=== PATIENT | female | born 1975 | race African-American/Black ===

== ENCOUNTER → 2021-06-15 14:49 | Outpatient (BNVA) | payer MEDICAID, SELFPAY | PROVIDERS: PCP Internal Medicine; Visit Provider Nurse Practitioner Family | DX: M25.50 Pain in unspecified joint (principal); Z91.040 Latex allergy status; Z88.0 Allergy status to penicillin; Z79.899 Other long term (current) drug therapy | CPT/HCPCS: 99202 ==

== ENCOUNTER 2021-07-06 17:58 | Outpatient (REF) | payer MEDICAID, SELFPAY ==
--- NOTE | ~2021-07-06 | MR_ITS ---
EXAMINATION: MR LUMBAR SPINE WITHOUT CONTRAST CLINICAL INFORMATION: Lumbar radiculopathy and low back pain. COMPARISON: CT dated 11/30/2019. TECHNIQUE: MRI of the lumbar spine was obtained using routine sequences without contrast. FINDINGS: VERTEBRAL BODIES AND PARASPINAL STRUCTURES: The L5 vertebra is transitional and partially sacralized. There is a mild retrosubluxation at the L4-L5 level. No compression fractures identified. The marrow signal is fairly homogeneous. No marrow or soft tissue edema visible. There is a complex cyst with an internal fluid-fluid level suspected to arise from the left adnexum and partially visualized measuring 3.8 cm in size. Nondependent fluid within the cystic lesion is hyperintense on T1 and T2-weighted imaging. More dependent fluid is hypointense on the T2-weighted sequence. CONUS MEDULLARIS AND CAUDA EQUINA: Normal, terminating at the level of T12-L1 level. No lower cord signal abnormality seen. The cauda equina nerve roots are normal. SPINAL LEVELS: L1-L2: Mild retrosubluxation and disc bulge with mild facet arthropathy. No central canal stenosis. Mild bilateral foraminal narrowing. Small posterior annular fissure evident. L2-L3: Very mild annular bulge. No central canal stenosis. Bulging disc results in mild bilateral foraminal encroachment, more so on the left side. L3-L4: Slight retrosubluxation and disc bulge with moderate facet arthropathy. Slight narrowing of the left subarticular zone without central canal stenosis. Shallow left foraminal disc protrusion with facet spurring results in mild to moderate left foraminal encroachment. Milder right foraminal narrowing. L4-L5: Degeneration and retrosubluxation with a shallow, broad-based central disc protrusion superimposed upon a concentric disc bulge. Severe facet arthropathy without central canal stenosis. [id number] left foraminal narrowing. Severe right foraminal encroachment with mild distortion of the exiting right L4 nerve root. L5-S1: No disc pathology. No central canal stenosis or foraminal narrowing. 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 If future surgery or a percutaneous procedure is contemplated, recommend correlation with plain film evaluation in order to ensure correct enumeration. Mild multilevel degenerative disc bulges and hypertrophic facet arthropathy with foraminal encroachment. Moderate facet degeneration at the L3-L4 level with a shallow left foraminal disc protrusion. Retrosubluxation and shallow broad-based central disc protrusion at the L4-L5 level with severe facet arthrosis and significant right foraminal encroachment resulting in mild distortion of the exiting right L4 nerve root. Suspected 3.8 cm hemorrhagic cyst arising from the left ovary. A follow-up pelvic ultrasound could be obtained in 6-8 weeks following the patient's menses to evaluate for interval resolution.
== END 2021-07-06 17:59 | disposition home or self-care (01) ==
LOC: HO.MRI 17:58
PROVIDERS: Visit Provider Nurse Practitioner Family
DX: M54.16 Radiculopathy, lumbar region (principal)
CPT/HCPCS: 72148

== ENCOUNTER → 2021-07-20 15:49 | Outpatient (BNVA) | payer MEDICAID, SELFPAY | PROVIDERS: PCP Internal Medicine; Visit Provider Nurse Practitioner Family | DX: M25.50 Pain in unspecified joint (principal); M25.561 Pain in right knee; M25.562 Pain in left knee; M53.3 Sacrococcygeal disorders, not elsewhere classified; M47.819 Spondylosis without myelopathy or radiculopathy, site unspecified | CPT/HCPCS: 99212 ==

== ENCOUNTER 2021-08-17 07:53 | Outpatient (REF) | payer MEDICAID, SELFPAY ==
--- NOTE | ~2021-08-17 | MM_ITS ---
EXAMINATION: BONE DENSITOMETRY CLINICAL INDICATION: Long-term (current) use of systemic steroids. COMPARISON: This is the patient's baseline examination. TECHNIQUE: Using a Brain [employer] Hand DXA System (software version: 13.1) manufactured by [employer], dual-energy x-ray absorptiometry was performed of the lumbar spine and left hip. The images are of good technical quality. Summary results are attached. FINDINGS: AP SPINE L1-L4: BMD 1.473 g/cm2, Z-score 0.9, T-score 2.4, normal. LEFT FEMUR, NECK: BMD 1.249 g/cm2, Z-score 0.6, T-score 1.5, normal. LEFT FEMUR, TOTAL: BMD 1.365 g/cm2, Z-score 1.4, T-score 2.8, normal. IDENTIFIED RISK FACTORS: Menopause, low calcium intake, corticosteroids, osteoporosis, tobacco use (current smoker). HISTORY OF FRACTURE: None listed. MEDICATIONS: None listed. MM/XR DEXA axial skeleton IMPRESSION: 1. DIAGNOSIS: Normal bone density based on the lowest T-score value of 1.5 in the femoral neck applying World Health Organization criteria. 2. 10-YEAR FRACTURE RISK PREDICTION, FRAX: Major osteoporotic fracture (clinical spine, forearm, hip or shoulder) 1.0%. Hip fracture 0.0%. 3. Treatment Recommendations: NOF guidelines recommend consideration for treatment in postmenopausal women and men age 50 and older presenting with the following: -A hip or vertebral (clinical or morphometric) fracture. -T-score less than or equal to -2.5 at the femoral neck or spine after appropriate evaluation to exclude secondary causes. -Low bone mass at the hip or spine and a 10-year fracture probability by FRAX of greater than or equal to 3% for hip fracture or greater than or equal to 20% for major osteoporotic fracture based on the [place] adapted WHO algorithm. 4. Other Recommendations: All treatment decisions require clinical judgment and consideration of individual patient factors, including patient preferences, comorbidities, previous drug use, risk factors not captured in the FRAX model (e.g. frailty, falls, vitamin D deficiency, increased bone turnover, interval significant decline in bone density) and possible under or overestimation of fracture risk by FRAX. FUTURE SCAN RECOMMENDATION: People with diagnosed cases of osteoporosis or at high risk for fracture should have regular bone mineral density tests. For patients eligible for Medicare, routine testing is allowed once every 2 years. The testing frequency can be increased to one year for patients who have rapidly progressing disease, those who are receiving or discontinuing medical therapy to restore bone mass, or have additional risk factors.
== END 2021-08-17 07:54 | disposition home or self-care (01) ==
LOC: HO.MAMMO 07:53
PROVIDERS: Visit Provider Nurse Practitioner Family
DX: Z13.820 Encounter for screening for osteoporosis (principal); Z78.0 Asymptomatic menopausal state; Z79.52 Long term (current) use of systemic steroids
CPT/HCPCS: 77080

== ENCOUNTER 2021-11-07 06:12 | Outpatient (REF) | payer MEDICAID, SELFPAY ==
--- NOTE | ~2021-11-07 | FL_ITS ---
EXAMINATION: XR FLUOROSCOPY WITH IMAGES CLINICAL INFORMATION: Radiculopathy. COMPARISON: None. TECHNIQUE: Fluoroscopy performed by Collette Ortiz. Fluoroscopy time: 1.0 minutes. Cumulative Dose: 46.6 mGy. DAP: 0.350 Gy-cm2. Images: 2. FINDINGS: There is needle positioned lateral border of right L4 vertebra with contrast opacifying the adjacent soft tissues. No gross bony abnormality seen on visualized images. FL/FL guidance in treatment room IMPRESSION: Fluoroscopy was provided to referrer for pain management.
== END 2021-11-07 06:13 | disposition home or self-care (01) ==
LOC: HO.RADIR 06:12
PROVIDERS: Visit Provider Internal Medicine
DX: M54.16 Radiculopathy, lumbar region (principal)
CPT/HCPCS: 64483; 64484; J1100

== ENCOUNTER → 2021-11-28 15:15 | Outpatient (BNVA) | payer MEDICAID, SELFPAY | PROVIDERS: PCP Internal Medicine; Visit Provider Nurse Practitioner Family | DX: M25.561 Pain in right knee (principal); M25.562 Pain in left knee; M53.3 Sacrococcygeal disorders, not elsewhere classified; M54.16 Radiculopathy, lumbar region; M47.819 Spondylosis without myelopathy or radiculopathy, site unspecified | CPT/HCPCS: 99212 ==

== ENCOUNTER → 2022-07-16 15:31 | Outpatient (BNVA) | payer OTHER, SELFPAY | PROVIDERS: PCP Internal Medicine; Visit Provider Nurse Practitioner Family | DX: M54.16 Radiculopathy, lumbar region (principal); M25.561 Pain in right knee; M25.562 Pain in left knee; M25.50 Pain in unspecified joint; M53.3 Sacrococcygeal disorders, not elsewhere classified; M47.819 Spondylosis without myelopathy or radiculopathy, site unspecified; M79.7 Fibromyalgia | CPT/HCPCS: 99212 ==

== ENCOUNTER → 2022-07-25 15:30 | Outpatient (BNVA) | payer OTHER, SELFPAY | PROVIDERS: PCP Internal Medicine; Visit Provider Nurse Practitioner Family | DX: M79.7 Fibromyalgia (principal); M54.16 Radiculopathy, lumbar region; M19.071 Primary osteoarthritis, right ankle and foot; M19.072 Primary osteoarthritis, left ankle and foot; G89.4 Chronic pain syndrome; M51.36 Other intervertebral disc degeneration, lumbar region; M47.819 Spondylosis without myelopathy or radiculopathy, site unspecified; M25.561 Pain in right knee; M25.562 Pain in left knee; E66.01 Morbid (severe) obesity due to excess calories; Z68.42 Body mass index [BMI] 45.0-49.9, adult | CPT/HCPCS: 99212 ==

== ENCOUNTER 2023-05-25 09:25 | Emergency (ER) | payer OTHER, SELFPAY ==
--- NOTE | ~2023-05-25 | XR_ITS ---
EXAMINATION: XR CHEST CLINICAL INFORMATION: Cough and fever COMPARISON: None available. TECHNIQUE: 2 views of the chest were obtained. FINDINGS: No significant abnormality is noted involving the heart, lungs, mediastinum, bony thorax or soft tissues. XR/XR chest 2V IMPRESSION: Unremarkable chest examination.
[2023-05-25 09:31] VITALS: BP 141/73; PULSE 67; RESP 19; TEMP 36.9; O2SAT 99; BMI 54.8
--- NOTE | 2023-05-25 10:24 | ED.GENADULT ---
HPI - General Adult General Chief complaint: Nausea/Vomiting/Diarrhea Stated complaint: Vomiting Time Seen by Provider: 05/25/23 10:01 Source: patient Mode of arrival: ambulatory Limitations: no limitations History of Present Illness HPI narrative: Patient is a 48-year-old female with history of fibromyalgia, polyarthralgia presenting to the emergency department with complaint of nausea, vomiting, body aches, productive cough, sweats and chills for the past 5 days. She saw her PCP on Friday my recommended that the patient come to the ED for IV fluids, patient declined at that time opting for Zofran and attempting to hydrate at home. Patient reports she has still been unable to keep down. Complains of left lateral rib pain which she believes is due to coughing. Denies abdominal pain. Denies chest pain or palpitations. Denies any dysuria, hematuria, frequency or other urinary symptoms. MD complaint: nausea, vomiting Onset (ago): day(s) Location: left Quality: aching Pain Consistency: colicky Relieving factors: rest Exacerbating factors: other (coughing) Associated symptoms: nausea/vomiting Treatments prior to arrival: other Related Data Home Medications Medication Instructions Recorded Confirmed acetaminophen 650 mg 650 mg PO Q12H 06/15/21 11/28/21 tablet,extended release (Tylenol 8 Hour) cyclobenzaprine 5 mg tablet 5 - 10 mg PO TID PRN muscle spasm 06/15/21 11/28/21 famotidine 20 mg tablet (Pepcid) 20 mg PO DAILY 06/15/21 11/28/21 melatonin 10 mg capsule 10 mg PO BEDTIME PRN 06/15/21 11/28/21 gabapentin 100 mg capsule 0 mg PO 07/25/22 gabapentin 300 mg capsule 600 mg PO BEDTIME 07/25/22 ibuprofen 800 mg tablet 800 mg PO TID 07/25/22 Previous Rx's Medication Instructions Recorded diclofenac sodium 1 % topical gel 4 g topical QID pain #180 grams 07/25/22 (Arthritis Pain (diclofenac)) lidocaine 5 % topical patch See Rx Instructions topical DAILY 09/27/22 30 days #30 ea azithromycin 250 mg tablet See Rx Instructions PO .COMPLEX #6 05/25/23 tabs metoclopramide HCl 10 mg tablet 10 mg PO Q6H PRN nausea and 05/25/23 vomiting #10 tabs Allergies Allergy/AdvReac Type Severity Reaction Status Date / Time latex [LATEX] Allergy Unknown HIVES Verified 05/25/23 09:31 Penicillins [PENICILLINS] Allergy Unknown VERITAGE Verified 05/25/23 09:31 Review of Systems Review of Systems: As per HPI Yes all other systems are reviewed and are negative Constitutional: Constitutional: Reports as per HPI [facility] Past Medical History Medical History (Updated 05/25/23 @ 15:14 by Allison Porter NP) Fibromyalgia Social History Social History Smoked in Last 30 Days: No Use of substances other than those prescribed or required for medical reasons: No Advance Directives: No Physical Exam ED Vital Signs: Vital Signs - 24 hr 05/25/23 09:31 05/25/23 13:13 Temperature 98.5 F 98.7 F Pulse Rate 67 62 Respiratory Rate 19 18 Blood Pressure 141/73 H 137/74 Pulse Oximetry 99 Oxygen Delivery Method Room Air BMI result Body Mass Index 54.8 Vital signs have been reviewed and appear to be correct. Blood pressure elevated. Heart rate normal. Respiratory rate normal. Temperature normal. Oxygen saturation normal. Const General: cooperative, healthy appearing and no acute distress Orientation/consciousness: oriented to person, oriented to place, oriented to time and patient oriented x3 Limitations: no limitations HENMT Head: Yes normocephalic and Yes atraumatic Ears: external ears normal General nose exam: Normal external nose present Face and sinus: Yes face symmetric Mouth: oropharynx normal and moist mucous membranes Throat: Yes uvula midline Eyes Pupils: Equal, round and reactive pupils present Neck Neck: Yes normal visual inspection and Yes supple Resp Effort & Inspection: normal respiratory effort and able to speak in complete sentences Auscultation: clear to auscultation bilaterally and rhonchi upper bilaterally Cardio Rate: regular rate Rhythm: regular rhythm Heart sounds: S1 normal heart sound present and S2 normal heart sound present GI Palpation (GI): Soft to palpation and nontender Auscultation: normoactive bowel sounds General: Yes no CVA tenderness Back/Spine/Pelvis Back: no CVA tenderness Skin General skin exam: elasticity normal and turgor normal Neuro General: oriented to person, oriented to place, oriented to time, patient oriented x3, moves all extremities, no focal motor deficits and CN's II-XI intact bilaterally Cranial nerves: Yes Equal, round and reactive pupils present Cognition (Neuro): normal cognition Extrem General: Yes full ROM, Yes no pedal edema and Yes no calf tenderness Psych Mental Status: mental status grossly normal Affect: normal affect Thought process: Normal thought process present Medications Administered Discontinued Medications Generic Name Dose Route Start Last Admin Trade Name Sonali PRN Reason Stop Dose Admin Diphenhydramine HCl 25 mg 05/25/23 13:38 05/25/23 13:50 Diphenhydramine Hcl 50 Mg/Ml Vial IVPUSH 05/25/23 13:39 25 mg ONCE ONE Administration Sodium Chloride 1,000 mls @ 999 mls/hr 05/25/23 10:45 05/25/23 12:17 Ns IV 05/25/23 11:45 Infused .Q1H1M MARSHALL Infusion Sodium Chloride 1,000 mls @ 999 mls/hr 05/25/23 13:45 05/25/23 13:53 Ns IV 05/25/23 14:45 999 mls/hr .Q1H1M MARSHALL Administration Metoclopramide HCl 10 mg 05/25/23 13:38 05/25/23 13:50 Metoclopramide Hcl 10 Mg/2 Ml Vial IVPUSH 05/25/23 13:39 10 mg ONCE ONE Administration Ondansetron HCl 4 mg 05/25/23 10:38 05/25/23 10:50 Ondansetron Hcl 4 Mg/2 Ml Vial IVPUSH 05/25/23 10:39 4 mg ONCE ONE Administration Medical Decision Making Medical Decision Making MDM Narrative: Patient is a 48-year-old female with history of fibromyalgia, polyarthralgia presenting to the emergency department with complaint of nausea, vomiting, body aches, productive cough, sweats and chills for the past 5 days. On exam patient is awake, A+Ox3, VS WNL, afebrile, normal neurological exam without focal deficits, physical exam findings as above. Given reported symptoms and physical exam findings, initial differential includes viral illness, covid, flu, gastroenteritis Plan: labs, UA, viral swabs, CXR, IV fluids and antiemetics Labs grossly within normal limits. Swabs for flu and Covid negative. X-ray chest notable for no evidence of pneumonia. My interpretation is in agreement with the radiologist's interpretation. Urinalysis shows no evidence of infection, negative . Patient complaining of ongoing dry heaving and nausea. Now stating that she was prescribed doxycycline for bronchitis on Friday as well, which is likely contributing to her nausea and vomiting. Advised patient to discontinue the doxy and will prescribe azithromycin upon discharge home. Will give additional liter of fluids, reglan, and benadryl. Patient reporting good relief of nausea after 2nd liter of fluids, reglan, and benadryl, is requesting discharge home. Again advised patient to discontinue doxycycline. Will prescribe azithromycin for bronchitis as well as reglan for nausea. Instructed patient follow-up with primary care provider this week. Return precautions discussed at bedside. Patient verbalized understanding of and agreement with plan. Differential Diagnosis Differential Diagnoses: The differential diagnosis associated with the presentation includes As per [facility]. Admission/Observation Consideration of admission/observation: Escalation of care including admission/observation considered Lab Data [facility] Lab Attestation statement: I reviewed the patient's lab results. As per [facility]. 05/25/23 10:17 05/25/23 10:17 Labs: Lab Results 05/25/23 05/25/23 Range/Units 10:17 13:17 WBC 4.6 L (4.8-10.8) X10*3/uL RBC 4.95 (4.20-5.50) X10*6/uL Hgb 13.3 (12.0-16.0) g/dl Hct 42.4 (37.0-47.0) % MCV 85.7 (80.0-98.0) fL MCH 26.9 L (27.0-33.0) pg MCHC 31.4 (31.0-35.0) g/dl RDW 14.3 (11.0-16.0) % Plt Count 240 (160-400) X10*3/uL MPV 10.7 (9.4-12.3) fL Immature Gran % (Auto) 0.2 (0.0-0.4) % Neut % (Auto) 52.4 (45-73) % Lymph % (Auto) 36.5 (20-40) % Granite % (Auto) 9.2 (2-11) % Eos % (Auto) 1.5 (0-4) % Baso % (Auto) 0.2 (0-2) % Lymph # (Auto) 1.7 (1.2-4.9) X10*3/uL Granite # (Auto) 0.4 (0.1-1.2) X10*3/uL Eos # (Auto) 0.1 (0.0-0.4) X10*3/uL Baso # (Auto) 0.0 (0.0-0.2) X10*3/uL Abs Immat Gran (auto) 0.01 (0.00-0.03) X10*3/uL Absolute Neuts (auto) 2.4 (2.0-8.3) x10*3/uL Absolute Nucleated RBC 0.000 (0.0-0.012) X10*3/uL Nucleated RBC % (auto) 0.0 (0.0-0.2) /100WBC Sodium 144 (135-145) mmol/L Potassium 4.1 (3.3-5.1) mmol/L Chloride 107 (96-108) mmol/L Carbon Dioxide 27 (22-29) mmol/L Anion Gap 14 (12-20) BUN 13 (9-16) mg/dL Creatinine 0.93 (0.5-1.4) mg/dL Estim Creat Clear Calc 92.8 Estimated GFR > 60 Random Glucose 93 (60-115) mg/dL Calcium 9.6 (8.4-10.2) mg/dL Total Bilirubin 0.3 (0.0-1.0) mg/dL Direct Bilirubin 0.2 (0.0-0.5) mg/dL AST 35 H (5-31) U/L ALT 35 H (0-31) U/L Alkaline Phosphatase 59 (39-117) U/L Total Protein 7.3 (6.5-8.0) g/dL Albumin 3.9 (3.5-5.0) g/dL Lipase 9 (8-78) U/L Urine Color Yellow Urine Appearance Clear Urine pH 7.0 (5.0-9.0) Ur Specific [place] >= 1.030 H (1.005-1.025) Urine Protein Trace (Neg-Trace) mg/dL Urine Glucose (UA) Negative (Negative) mg/dL Urine Ketones 40 (Negative) mg/dL Urine Blood Negative (Negative) Urine Nitrite Negative (Negative) Ur Leukocyte Esterase Negative (Negative) Urine Test NEGATIVE (NEGATIVE) COVID-19 (NOLAN) Negative (Negative) COVID-19 Clin Com See Note Influenza Type A (MAULIK) Negative (Negative) Influenza Type B (MAULIK) Negative (Negative) Influenza A & B Note See Note Independent Interpretation I performed an independent interpretation of an: Plain X-Ray Interpretation: No evidence of pneumonia on chest x-ray Radiology Impression Discussion of test interpretation with radiology: I have reviewed the radiologist's reading. Radiologist Impression: XR/XR chest 2V IMPRESSION: Unremarkable chest examination. External Record Review External record reviewed: Inpatient record, Office record and Outpatient record Prescription Management I considered prescription management with: Antibiotic and Other Discharge Plan Discharge Clinical Impression: Gastroenteritis Patient Disposition: Home, Self-Care Instructions: Gastroenteritis (DC), Acute Nausea and Vomiting (ED), Acute Diarrhea (ED) Additional Instructions: You have been evaluated in the emergency department today for nausea, vomiting, and diarrhea. Your evaluation suggests that your symptoms are most likely due to a viral illness which will improve on it's own with rest and fluids. Remember to drink plenty of fluids at home. You are being prescribed metoclopramide which you can use as per the prescription instructions for nausea. Should stop taking the doxycycline that you were previously prescribed and begin taking the azithromycin that you are were prescribed today. Please follow up with your primary care provider within two days. Return to the emergency department if you experience worsening or uncontrolled pain, inability to tolerate fluids by mouth, difficulty breathing, fevers 100.4? F or greater, recurrent vomiting, or any other concerning symptoms. Prescriptions: New azithromycin 250 mg tablet See Rx Instructions .ROUTE .COMPLEX Qty: 6 0RF Rx Instructions: For 250 mg dose pack: take 500 mg today (day 1), then 250 mg for 4 days (days 2-5) metoclopramide HCl 10 mg tablet 10 mg PO Q6H PRN (Reason: nausea and vomiting) Qty: 10 0RF No Action lidocaine 5 % adhesive patch,medicated See Rx Instructions topical DAILY 30 Days Qty: 30 2RF Rx Instructions: leave on most painful area for up to 12 hrs topically daily; cyclobenzaprine 5 mg tablet 5 - 10 mg PO TID PRN (Reason: muscle spasm) acetaminophen [Tylenol 8 Hour] 650 mg tablet extended release 650 mg PO Q12H famotidine [Pepcid] 20 mg tablet 20 mg PO DAILY melatonin 10 mg capsule 10 mg PO BEDTIME PRN gabapentin 300 mg capsule 600 mg PO BEDTIME ibuprofen 800 mg tablet 800 mg PO TID gabapentin 100 mg capsule 0 mg PO diclofenac sodium [Arthritis Pain (diclofenac)] 1 % gel 4 g topical QID Qty: 180 1RF Rx Instructions: Apply 1-3 grams (pumps) to the affected area 3-4 times daily (knee and feet). Apply first, then rub in well.
[2023-05-25 10:26] LABS: MANUAL DIFF FLAG NO
[2023-05-25 10:29] LABS: Basophils Percent Auto 0.2 % (0-2); Eosinophils Absolute Auto 0.1 X10*3/uL (0.0-0.4); Eosinophils Percent Auto 1.5 % (0-4); Hematocrit 42.4 % (37.0-47.0); Hemoglobin 13.3 g/dl (12.0-16.0); Imm Gran Abs Auto 0.01 X10*3/uL (0.00-0.03); Imm Gran Pct Auto 0.2 % (0.0-0.4); Lymphocytes Absolute Auto 1.7 X10*3/uL (1.2-4.9); Lymphocytes Percent Auto 36.5 % (20-40); Mean Corpuscular HGB Conc 31.4 g/dl (31.0-35.0); Mean Corpuscular Hemoglobin 26.9 pg (27.0-33.0); Mean Corpuscular Volume 85.7 fL (80.0-98.0); Mean Platelet Volume 10.7 fL (9.4-12.3); Monocytes Absolute Auto 0.4 X10*3/uL (0.1-1.2); Monocytes Percent Auto 9.2 % (2-11); Neutrophils Absolute Auto 2.4 x10*3/uL (2.0-8.3); Neutrophils Percent Auto 52.4 % (45-73); Platelet Count 240 X10*3/uL (160-400); Red Blood Count 4.95 X10*6/uL (4.20-5.50); Red Cell Distribution Width 14.3 % (11.0-16.0); White Blood Count 4.6 X10*3/uL (4.8-10.8)
[2023-05-25 10:43] LABS: Alanine Aminotransferase 35 U/L (0-31); Albumin Level 3.9 g/dL (3.5-5.0); Alkaline Phosphatase 59 U/L (39-117); Anion Gap 14 (12-20); Aspartate Amino Transferase 35 U/L (5-31); Bilirubin Direct 0.2 mg/dL (0.0-0.5); Bilirubin Total 0.3 mg/dL (0.0-1.0); Blood Urea Nitrogen 13 mg/dL (9-16); Calcium 9.6 mg/dL (8.4-10.2); Carbon Dioxide 27 mmol/L (22-29); Chloride 107 mmol/L (96-108); Creatinine Clr Calc Pharmacy 92.8; Estimated Glomerular Filt Rate > 60; Glucose Random 93 mg/dL (60-115); Lipase 9 U/L (8-78); Potassium 4.1 mmol/L (3.3-5.1); Sodium 144 mmol/L (135-145); Total Protein 7.3 g/dL (6.5-8.0)
[2023-05-25 10:48] LABS: COVID-19 Test Negative (Negative); IDNOW Serial# 16C4AD1C; IDNOW Serial# 55D5AD1C; Influenza A Negative (Negative); Influenza B2 Negative (Negative)
[2023-05-25] MEDS: 0.9 % Sodium Chloride 1,000 ML 999 ML IV ×2 (10:50→13:53)
[2023-05-25] MEDS: ondansetron HCL 4 MG/2 ML VIAL IVPUSH (10:50)
[2023-05-25 13:13] VITALS: BP 137/74; PULSE 62; RESP 18; TEMP 37.1
[2023-05-25 13:23] LABS: Appearance Urine Clear; Color Urine Yellow; Glucose Urine UA Negative (Negative); Leukocyte Esterase Urine Negative (Negative); Nitrite Urine Negative (Negative); Specific Gravity - Urine >= 1.030 (1.005-1.025); UPreg QC Valid YES; Urine Blood Negative (Negative); Urine Ketones 40 mg/dL (Negative); Urine Pregnancy NEGATIVE (NEGATIVE); Urine Protein Trace mg/dL (Neg-Trace)
[2023-05-25] MEDS: Metoclopramide HCl 10 MG/2 ML VIAL IVPUSH (13:50)
[2023-05-25] MEDS: diphenhydrAMINE HCL 50 MG/ML VIAL 25 MG IVPUSH (13:50)
== END 2023-05-25 15:31 | disposition home or self-care (01) ==
PROVIDERS: Emergency Provider Emergency Medicine Emergency Medical Services; PCP Internal Medicine
DX: K52.9 Noninfective gastroenteritis and colitis, unspecified (principal); R11.2 Nausea with vomiting, unspecified; M79.10 Myalgia, unspecified site; R05.9 Cough, unspecified; R50.9 Fever, unspecified; Z11.52 Encounter for screening for COVID-19; Z79.899 Other long term (current) drug therapy
CPT/HCPCS: 71046; 80048; 80076; 81003; 81025; 83690; 85025; 87502; 87635; 96361; 96374; 96375; 99284; J1200; J2405; J2765

== ENCOUNTER 2023-11-15 10:10 | Outpatient (REF) | payer OTHER, SELFPAY ==
[2023-11-15 12:25] LABS: Vitamin B12 357 pg/mL (200-900)
== END 2023-11-15 10:11 | disposition home or self-care (01) ==
LOC: HO.LAB 10:10
PROVIDERS: PCP Internal Medicine; Visit Provider Psychiatry & Neurology Neurology
DX: R20.0 Anesthesia of skin (principal); R41.3 Other amnesia
CPT/HCPCS: 36415; 82607; 84443

== ENCOUNTER 2024-10-04 18:17 | Emergency (ER) | payer OTHER, SELFPAY ==
[2024-10-04 18:30] VITALS: BP 167/78; PULSE 72; RESP 18; TEMP 36.8; O2SAT 98; BMI 48.9
--- NOTE | 2024-10-04 18:30 | ED.GENADULT ---
HPI - General Adult General Chief complaint: Abdominal Pain Stated complaint: Passing a Kidney stone? Related Data Home Medications ?Medication ?Instructions ?Recorded ?Confirmed acetaminophen 650 mg 650 mg PO Q12H 06/15/21 11/28/21 tablet,extended release (Tylenol 8 Hour) cyclobenzaprine 5 mg tablet 5 - 10 mg PO TID PRN muscle spasm 06/15/21 11/28/21 famotidine 20 mg tablet (Pepcid) 20 mg PO DAILY 06/15/21 11/28/21 melatonin 10 mg capsule 10 mg PO BEDTIME PRN 06/15/21 11/28/21 gabapentin 100 mg capsule 0 mg PO 07/25/22 gabapentin 300 mg capsule 600 mg PO BEDTIME 07/25/22 ibuprofen 800 mg tablet 800 mg PO TID 07/25/22 Previous Rx's ?Medication ?Instructions ?Recorded diclofenac sodium 1 % topical gel 4 g topical QID pain #180 grams 07/25/22 (Arthritis Pain (diclofenac)) lidocaine 5 % topical patch See Rx Instructions topical DAILY 09/27/22 30 days #30 ea azithromycin 250 mg tablet See Rx Instructions PO .COMPLEX #6 05/25/23 tabs metoclopramide HCl 10 mg tablet 10 mg PO Q6H PRN nausea and 05/25/23 vomiting #10 tabs oxycodone 5 mg tablet 5 mg PO Q8H PRN severe pain (scale 10/05/24 score 7-10) #12 tabs prednisone 20 mg tablet 20 mg PO DAILY 5 days #5 tabs 10/06/24 tamsulosin 0.4 mg capsule 0.4 mg PO BEDTIME 14 days #14 caps 10/06/24 Allergies Allergy/AdvReac Type Severity Reaction Status Date / Time latex (LATEX) Allergy Unknown HIVES Verified 10/05/24 14:29 Penicillins (PENICILLINS) Allergy Unknown VERITAGE Verified 10/05/24 14:29 [facility] Past Medical History Medical History (Updated 10/07/24 @ 21:03 by TRINY Schneider) Fibromyalgia Social History Social History Substance Use Type: Marijuana Physical Exam ED Vital Signs: BMI result Body Mass Index 48.9 Course Course Course Narrative: This is an RME: Additional HPI, ROS, PE not included below will be deferred to primary provider. RME assessment and note performed by: Afsaneh Rutherford PA-C This is a [id number]-female, with a hx of kidney stones,fibromyalgia, polyarthralgia who presents to the ER with a complaint of left lower abdomen x 4 days. She believes that it is a kidney stone. Reporting nausea and dry heaving this morning. No fevers, endorsing chills. Urinary frequency. Reporting she had constipation > tried [id number] medications and that she had some diarrhea, states that it was unusual. She does have pain in the left low abdomen. Plan: Labs, UA, deferring diagnostic imaging for primary provider as patient also has some GI symptoms therefore may need CT with IV contrast Reevaluation(s) Reevaluation #1: Patient left without completing treatment. Medical Decision Making Lab Data 10/04/24 19:14 10/04/24 19:14 Labs: Lab Results 10/04/24 Range/Units 19:14 WBC 8.7 (4.8-10.8) X10*3/uL RBC 4.53 (4.20-5.50) X10*6/uL Hgb 11.9 L (12.0-16.0) g/dl Hct 38.0 (37.0-47.0) % MCV 83.9 (80.0-98.0) fL MCH 26.3 L (27.0-33.0) pg MCHC 31.3 (31.0-35.0) g/dl RDW 14.7 (11.0-16.0) % Plt Count 256 (160-400) X10*3/uL MPV 10.9 (9.4-12.3) fL Immature Gran % (Auto) 0.2 (0.0-0.4) % Neut % (Auto) 55.0 (45-73) % Lymph % (Auto) 34.5 (20-40) % [place] % (Auto) 7.7 (2-11) % Eos % (Auto) 2.1 (0-4) % Baso % (Auto) 0.5 (0-2) % Lymph # (Auto) 3.0 (1.2-4.9) X10*3/uL [place] # (Auto) 0.7 (0.1-1.2) X10*3/uL Eos # (Auto) 0.2 (0.0-0.4) X10*3/uL Baso # (Auto) 0.0 (0.0-0.2) X10*3/uL Abs Immat Gran (auto) 0.02 (0.00-0.03) X10*3/uL Absolute Neuts (auto) 4.8 (2.0-8.3) x10*3/uL Absolute Nucleated RBC 0.000 (0.0-0.012) X10*3/uL Nucleated RBC % (auto) 0.0 (0.0-0.2) /100WBC Sodium 142 (135-145) mmol/L Potassium 4.5 (3.3-5.1) mmol/L Chloride 110 H (96-108) mmol/L Carbon Dioxide 25 (22-29) mmol/L Anion Gap 12 (12-20) BUN 17 H (9-16) mg/dL Creatinine 1.00 (0.5-1.4) mg/dL Estim Creat Clear Calc 88.7 Estimated GFR 58 Random Glucose 89 (60-115) mg/dL Calcium 9.5 (8.4-10.2) mg/dL Total Bilirubin 0.3 (0.0-1.0) mg/dL Direct Bilirubin 0.1 (0.0-0.5) mg/dL AST 24 (5-31) U/L ALT 21 (0-31) U/L Alkaline Phosphatase 68 (39-117) U/L Total Protein 7.1 (6.5-8.0) g/dL Albumin 4.2 (3.5-5.0) g/dL Urine Color Dark Yellow Urine Appearance Cloudy Urine pH 5.5 (5.0-9.0) Ur Specific [place] >= 1.030 H (1.005-1.025) Urine Protein 30 (1+) H (Neg-Trace) mg/dL Urine Glucose (UA) Negative (Negative) mg/dL Urine Ketones Trace (Negative) mg/dL Urine Blood Large (3+) H (Negative) Urine Nitrite Negative (Negative) Ur Leukocyte Esterase Trace H (Negative) Urine RBC >20 H (0-2) /HPF Urine WBC 0-5 (0-5) /HPF Ur Squamous Epith Cells >20 (0-2) /HPF Urine Bacteria 1+ (None Seen) Hyaline Casts 0-2 (0-2) /LPF Discharge Plan Discharge Clinical Impression: Abdominal pain Patient Disposition: Left W/O Completing Treatment Prescriptions: No Action lidocaine 5 % adhesive patch,medicated See Rx Instructions topical DAILY 30 Days Qty: 30 2RF Rx Instructions: leave on most painful area for up to 12 hrs topically daily; prednisone 20 mg tablet 20 mg PO DAILY 5 Days Qty: 5 0RF tamsulosin 0.4 mg capsule 0.4 mg PO BEDTIME 14 Days Qty: 14 0RF azithromycin 250 mg tablet See Rx Instructions .ROUTE .COMPLEX Qty: 6 0RF Rx Instructions: For 250 mg dose pack: take 500 mg today (day 1), then 250 mg for 4 days (days 2-5) metoclopramide HCl 10 mg tablet 10 mg PO Q6H PRN (Reason: nausea and vomiting) Qty: 10 0RF oxycodone 5 mg tablet 5 mg PO Q8H PRN (Reason: severe pain (scale score 7-10)) Qty: 12 0RF Rx Instructions: Partial Fill upon patient request. cyclobenzaprine 5 mg tablet 5 - 10 mg PO TID PRN (Reason: muscle spasm) acetaminophen [Tylenol 8 Hour] 650 mg tablet extended release 650 mg PO Q12H famotidine [Pepcid] 20 mg tablet 20 mg PO DAILY melatonin 10 mg capsule 10 mg PO BEDTIME PRN gabapentin 300 mg capsule 600 mg PO BEDTIME ibuprofen 800 mg tablet 800 mg PO TID gabapentin 100 mg capsule 0 mg PO diclofenac sodium [Arthritis Pain (diclofenac)] 1 % gel 4 g topical QID Qty: 180 1RF Rx Instructions: Apply 1-3 grams (pumps) to the affected area 3-4 times daily (knee and feet). Apply first, then rub in well. Discharge Date/Time: 10/04/24 21:24
[2024-10-04 19:20] LABS: MANUAL DIFF FLAG NO
[2024-10-04 19:23] LABS: Appearance Urine Cloudy; Color Urine Dark Yellow; Glucose Urine UA Negative (Negative); Leukocyte Esterase Urine Trace (Negative); Nitrite Urine Negative (Negative); PH 5.5 (5.0-9.0); Specific Gravity - Urine >= 1.030 (1.005-1.025); UMIC TRIGGER UACC YES; Urine Blood Large (3+) (Negative); Urine Ketones Trace mg/dL (Negative); Urine Protein 30 (1+) mg/dL (Neg-Trace)
[2024-10-04 19:24] LABS: Basophils Percent Auto 0.5 % (0-2); Eosinophils Absolute Auto 0.2 X10*3/uL (0.0-0.4); Eosinophils Percent Auto 2.1 % (0-4); Hemoglobin 11.9 g/dl (12.0-16.0); Imm Gran Abs Auto 0.02 X10*3/uL (0.00-0.03); Imm Gran Pct Auto 0.2 % (0.0-0.4); Lymphocytes Percent Auto 34.5 % (20-40); Mean Corpuscular HGB Conc 31.3 g/dl (31.0-35.0); Mean Corpuscular Hemoglobin 26.3 pg (27.0-33.0); Mean Corpuscular Volume 83.9 fL (80.0-98.0); Mean Platelet Volume 10.9 fL (9.4-12.3); Monocytes Absolute Auto 0.7 X10*3/uL (0.1-1.2); Monocytes Percent Auto 7.7 % (2-11); Neutrophils Absolute Auto 4.8 x10*3/uL (2.0-8.3); Platelet Count 256 X10*3/uL (160-400); Red Blood Count 4.53 X10*6/uL (4.20-5.50); Red Cell Distribution Width 14.7 % (11.0-16.0); White Blood Count 8.7 X10*3/uL (4.8-10.8)
[2024-10-04 19:28] LABS: Bacteria Urine 1+ (None Seen); Hyaline Casts Urine 0-2 /LPF (0-2); RBC Urine >20 /HPF (0-2); Squamous Epithelial Cell Urine >20 /HPF (0-2); WBC Urine 0-5 /HPF (0-5)
[2024-10-04 19:35] LABS: Alanine Aminotransferase 21 U/L (0-31); Albumin Level 4.2 g/dL (3.5-5.0); Alkaline Phosphatase 68 U/L (39-117); Anion Gap 12 (12-20); Aspartate Amino Transferase 24 U/L (5-31); Bilirubin Direct 0.1 mg/dL (0.0-0.5); Bilirubin Total 0.3 mg/dL (0.0-1.0); Blood Urea Nitrogen 17 mg/dL (9-16); Calcium 9.5 mg/dL (8.4-10.2); Carbon Dioxide 25 mmol/L (22-29); Chloride 110 mmol/L (96-108); Creatinine Clr Calc Pharmacy 88.7; Estimated Glomerular Filt Rate 58; Glucose Random 89 mg/dL (60-115); Potassium 4.5 mmol/L (3.3-5.1); Sodium 142 mmol/L (135-145); Total Protein 7.1 g/dL (6.5-8.0)
--- OUTSIDE RECORDS SUMMARY | 2024-10-04 21:25 | XMS_ITS | Clinical Summary ---
Author Organization [employer] Address [address] [place] [address] Care Team Providers Care Continuous Drier Helper Name Role Phone Unavailable Primary Care Provider Unavailabl e Immunizations Immunization Administration Dates Next Due Moderna Covid-19 Vaccine 12+ 05/15/2021,08/23/19,07/25/2020 Moderna Covid-19 Vaccine 6+ Bivalent 2022 Social History Tobacco Use Types Packs/Day Years Used Date Smoking Tobacco: Never Assessed Comments Unknown Sex and Gender Information Value Date Recorded Sex Assigned at Female 2022 10:27 AM EST Legal Sex Female 10:23 AM EST Gender Identity Female 2022 10:27 AM EST Sexual Orientation Straight 2022 10 :27 AM EST Plan of Treatment Health Maintenance Due Date Last Done Comments CT Colonography 1973 Colonoscopy 1973 Colorectal Cancer Screening 1973 Depression Screening 1973 FIT DNA/Cologuard 1973 FIT 1973 FOBT 1973 HIV Screening 1973 Lipid Panel 1973 SDOH Screening 1973 Sigmoidoscopy 1973 Disability Screening 1973 Alcohol/Substance Use Screening 1985 Tobacco Screening 1985 Family Planning (PISQ) 1988 Hepatitis C Screening 1991 Hepatitis B Vaccines (1 of 3 - 19+ 3-dose series) 1992 Pap Smear 1994 Cervical Cancer Screening 2003 HPV/Cotest 2003 Mammogram 2013 DTaP/Tdap/Td Vaccines (2 - Td or Tdap) 02/21/2021 02/21/2011 Pneumococcal Vaccine: 50+ Years (1 of 1 - PCV) 2023 Zoster Vaccines (1 of 2) 2023 COVID-19 Vaccine (5 - 4-25 season) 2023 2022, 05/15/2021, 08/22/2020, Additional history exists Influenza Vaccine (Season Ended) 2024 RSV Patients and Patients Aged 60 years or older (1 - 1-dose 75+ series) 2048 HIB Vaccines Aged Out No longer eligi ble based on patient's age to complete this topic HPV Vaccines Aged Out No longer eligi ble based on patient's age to complete this topic Hepatitis A Vaccines Aged Out No long er eligible based on patient's age to complete this topic IPV Vaccines Aged Out No longer eligi ble based on patient's age to complete this topic Meningococcal B Vaccine Aged Out No l onger eligible based on patient's age to complete this topic Meningococcal Vaccine Aged Out No kavin samir eligible based on patient's age to complete this topic RSV under 20 months Aged Out No longe r eligible based on patient's age to complete this topic Rotavirus Vaccines Aged Out No longer eligible based on patient's age to complete this topic Insurance [facility]
== END 2024-10-04 21:24 | disposition left against medical advice (07) ==
PROVIDERS: Physician Assistant Medical; Emergency Provider Emergency Medicine; PCP Internal Medicine
DX: R10.2 Pelvic and perineal pain (principal); Z79.899 Other long term (current) drug therapy
CPT/HCPCS: 36415; 80048; 80076; 81001; 85025; 99282; 99283

== ENCOUNTER 2024-10-05 14:18 | Emergency (ER) | payer OTHER, SELFPAY ==
--- NOTE | ~2024-10-05 | CT_ITS ---
CLINICAL HISTORY: left flank pain CT abdomen and pelvis without contrast Comparison: None provided Findings: The lung bases are clear. 3 mm calculus within the upper pole of the left kidney. Additional 4 mm calcification within the left distal ureter. No hydronephrosis. There are 2 circumscribed low-density nodules within the lateral segment of the liver, measuring 4.7 and 3.2 cm in greatest dimension respectively. The spleen, pancreas and adrenal glands are unremarkable. There is no calcified gallstone. No bowel obstruction, pneumoperitoneum, or pneumatosis. The urinary bladder is completely decompressed. Pelvic contents are otherwise unremarkable. The appendix is normal. The bones are intact. IMPRESSION: 1. 4 mm calcification within the left distal ureter. No associated hydronephrosis. 2. Tiny nonobstructive calculus within the upper pole of the left kidney. 3. There are 2 prominent nodules within the lateral segment of the liver. Benign nodules are favored malignancy is not excluded. Recommend further evaluation with multiphase CT or MRI. This document has been electronically signed by: Fatmata Hardy MD on 10/05/2024 21:04:45
--- NOTE | ~2024-10-05 | XR_ITS ---
EXAMINATION: XR ABDOMEN COMPLETE CLINICAL INDICATION: evaluate for stool burden vs obvious SBO COMPARISON: CT abdomen and pelvis November 30, 2019 TECHNIQUE: Upright and supine views of the abdomen. FINDINGS: Scattered small bowel gas is present. There are no air-fluid levels. Moderate stool is present in the transverse colon, right midline XR/XR acute abdomen series IMPRESSION: Unremarkable examination. Electronically signed by: Junaid Flores MD 10/05/2024 03:37 PM EDT
--- NOTE | ~2024-10-05 | US_ITS ---
EXAMINATION: US RETROPERITONEAL LIMITED (RENAL ONLY) CLINICAL INFORMATION: Abdominal pain. COMPARISON: None available. TECHNIQUE: Color Doppler and grayscale images were performed to evaluate both kidneys FINDINGS: RIGHT KIDNEY: 10 cm (long axis). The kidney is normal in size, contour, and echogenicity. Renal cortical thickness is normal. No calculi or focal parenchymal lesions. No hydronephrosis. LEFT KIDNEY: 9.5 cm (long axis). The kidney is normal in size, contour, and echogenicity. Renal cortical thickness is normal. No calculi or focal parenchymal lesions. No hydronephrosis. US/US renal BI IMPRESSION: Unremarkable renal ultrasound. Electronically signed by: Junaid Flores MD 10/05/2024 04:31 PM EDT
[2024-10-05 14:24] VITALS: BP 138/77; PULSE 93; RESP 16; TEMP 36.9; O2SAT 98; BMI 48.7
--- NOTE | 2024-10-05 14:27 | ED.ABDPAIN ---
HPI - Abdominal Pain General Chief Complaint: Abdominal Pain Stated Complaint: kidney stone Time Seen by Provider: 10/05/24 19:37 Source: patient, RN notes reviewed and old records reviewed Mode of arrival: ambulatory Limitations: no limitations History of Present Illness ED Provider: Jessica HPI narrative: 49-year-old female past medical history significant for fibromyalgia, lumbar degenerative disc disease, chronic pain syndrome presents for evaluation of left lower abdominal pain for the last 4 days. She reports she has a history of kidney stones in his feels similar. She describes ?a pressure on my bladder. ? She has noticed blood in her urine. She reports decreased urination despite straining. She also endorses constipation. She was previously on MiraLax but father that worsen her constipation so she stopped taking it. Her pain is waxing and waning in intensity. She presented to this emergency department yesterday but ultimately left without being seen due to wait time. Denies any fevers, chills Related Data Home Medications ?Medication ?Instructions ?Recorded ?Confirmed acetaminophen 650 mg 650 mg PO Q12H 06/15/21 11/28/21 tablet,extended release (Tylenol 8 Hour) cyclobenzaprine 5 mg tablet 5 - 10 mg PO TID PRN muscle spasm 06/15/21 11/28/21 famotidine 20 mg tablet (Pepcid) 20 mg PO DAILY 06/15/21 11/28/21 melatonin 10 mg capsule 10 mg PO BEDTIME PRN 06/15/21 11/28/21 gabapentin 100 mg capsule 0 mg PO 07/25/22 gabapentin 300 mg capsule 600 mg PO BEDTIME 07/25/22 ibuprofen 800 mg tablet 800 mg PO TID 07/25/22 Previous Rx's ?Medication ?Instructions ?Recorded diclofenac sodium 1 % topical gel 4 g topical QID pain #180 grams 07/25/22 (Arthritis Pain (diclofenac)) lidocaine 5 % topical patch See Rx Instructions topical DAILY 09/27/22 30 days #30 ea azithromycin 250 mg tablet See Rx Instructions PO .COMPLEX #6 05/25/23 tabs metoclopramide HCl 10 mg tablet 10 mg PO Q6H PRN nausea and 05/25/23 vomiting #10 tabs oxycodone 5 mg tablet 5 mg PO Q8H PRN severe pain (scale 10/05/24 score 7-10) #12 tabs prednisone 20 mg tablet 20 mg PO DAILY 5 days #5 tabs 10/06/24 tamsulosin 0.4 mg capsule 0.4 mg PO BEDTIME 14 days #14 caps 10/06/24 Allergies Allergy/AdvReac Type Severity Reaction Status Date / Time latex (LATEX) Allergy Unknown HIVES Verified 10/05/24 14:29 Penicillins (PENICILLINS) Allergy Unknown VERITAGE Verified 10/05/24 14:29 Review of Systems Constitutional: Denies body ache(s), Denies chills, Denies fever(s) and Denies headache(s) Denies headache(s) Cardiovascular: Denies chest pain and Denies dyspnea on exertion Respiratory: Denies cough and Denies dyspnea on exertion Gastrointestinal: Reports abdominal pain, Reports constipation, Reports GI cramping, Denies diarrhea, Denies loose stools, Reports nausea and Denies vomiting Musculoskeletal: Denies back pain Skin/Breast: Denies rash Denies headache(s) Psychiatric: Denies anxiety PMFSH Past Medical History Medical History (Updated 10/08/24 @ 00:00 by Jacob Daroger) Fibromyalgia Social History Social History Substance Use Type: Marijuana Physical Exam ED Vital Signs: Vital Signs - 24 hr 10/05/24 14:24 10/05/24 19:13 10/05/24 19:50 Temperature 98.5 F 97.5 F Pulse Rate 93 75 67 Respiratory Rate 16 16 18 Blood Pressure 138/77 148/76 H 153/74 H Pulse Oximetry 98 97 97 Oxygen Delivery Method Room Air Room Air Room Air BMI result Body Mass Index 48.7 Const General: healthy appearing, comfortable, no acute distress, alert and awake Nutritional Appearance: well nourished Orientation/consciousness: patient oriented x3 [facility] Head: Yes normocephalic and Yes atraumatic Eyes Eyelids: Yes eyelids normal Conjunctivae: conjunctivae normal Sclerae: sclerae normal Corneas: corneas normal Pupils: Equal, round and reactive pupils present EOM: EOMs intact bilaterally Neck Neck: Yes full ROM Resp Effort & Inspection: normal respiratory effort, able to speak in complete sentences and not labored Cardio Rate: regular rate Rhythm: regular rhythm GI Inspection: No distended Palpation (GI): Soft to palpation, not firm, Tenderness to palpation present (GI) in the LLQ, no guarding and not rigid Auscultation: normoactive bowel sounds Skin General skin exam: elasticity normal Neuro General: patient oriented x3 Cranial nerves: Yes Equal, round and reactive pupils present and Yes Bilaterally intact EOM present Cognition (Neuro): normal cognition Extrem Other: Moving all extremities well without any obvious deformities Course Course Course Narrative: RME: Bianca Omalley PA-C 10/05/2024: 234 pm; will defer full ROS and PE to treating provider Left lower pelvic pain x 4 days here yesterday left before being seen. Thinks she could have kidney stone, no blood in urine, pain is colicky. Had colonoscopy earlier this month old she was constipated told to take MiraLax daily for which she tried but it think it was making any difference so she stopped taking it. Last BM being 3 days ago normal and this morning was pellets. She denies feeling nauseous there has been no vomiting and no diarrhea. No fevers and no chills denies any vaginal symptoms and has no painful urination but does report change in urinary output Medical Decision Making Medical Decision Making MDM Narrative: 49-year-old female with past medical history significant for fibromyalgia, chronic pain syndrome and degenerative disc disease presents for evaluation abdominal pain. She endorses blood in her urine and decreased urination but no pain with urination. She has a history of kidney stones and reports this feels similar. A renal ultrasound was ordered that does not show any evidence of hydronephrosis. No large stones were seen on the ultrasound either. A KUB shows mostly right-sided transverse colon constipation which does not explain her left-sided abdominal pain. There was no clear bowel obstruction. Given the left lower abdominal pain there was concern for diverticulitis. A CT scan without contrast was ordered to evaluate for diverticulitis versus obstructive uropathy that was not picked up on the ultrasound. No evidence of UTI causing her hematuria. There are no white cells seen and no bacteria in the urine also no nitrites. Differential Diagnosis Differential Diagnoses: The differential diagnosis associated with the presentation includes Abdominal pain Constipation Obstructive uropathy Colitis UTI Lab Data MDM Lab Attestation statement: I reviewed the patient's lab results. No leukocytosis or anemia. Normal platelet count. No significant electrolyte abnormalities warranting intervention. 10/05/24 14:39 10/05/24 14:39 Labs: Lab Results 10/05/24 10/05/24 Range/Units 14:39 19:16 WBC 8.8 (4.8-10.8) X10*3/uL RBC 4.64 (4.20-5.50) X10*6/uL Hgb 12.3 (12.0-16.0) g/dl Hct 39.5 (37.0-47.0) % MCV 85.1 (80.0-98.0) fL MCH 26.5 L (27.0-33.0) pg MCHC 31.1 (31.0-35.0) g/dl RDW 14.7 (11.0-16.0) % Plt Count 266 (160-400) X10*3/uL MPV 10.6 (9.4-12.3) fL Immature Gran % (Auto) 0.3 (0.0-0.4) % Neut % (Auto) 52.9 (45-73) % Lymph % (Auto) 37.4 (20-40) % [place] % (Auto) 7.1 (2-11) % Eos % (Auto) 2.0 (0-4) % Baso % (Auto) 0.3 (0-2) % Lymph # (Auto) 3.3 (1.2-4.9) X10*3/uL [place] # (Auto) 0.6 (0.1-1.2) X10*3/uL Eos # (Auto) 0.2 (0.0-0.4) X10*3/uL Baso # (Auto) 0.0 (0.0-0.2) X10*3/uL Abs Immat Gran (auto) 0.03 (0.00-0.03) X10*3/uL Absolute Neuts (auto) 4.6 (2.0-8.3) x10*3/uL Absolute Nucleated RBC 0.000 (0.0-0.012) X10*3/uL Nucleated RBC % (auto) 0.0 (0.0-0.2) /100WBC Sodium 142 (135-145) mmol/L Potassium 4.3 (3.3-5.1) mmol/L Chloride 106 (96-108) mmol/L Carbon Dioxide 27 (22-29) mmol/L Anion Gap 13 (12-20) BUN 15 (9-16) mg/dL Creatinine 1.00 (0.5-1.4) mg/dL Estim Creat Clear Calc 88.5 Estimated GFR 58 Fasting Glucose 85 (60-99) mg/dL Calcium 9.9 (8.4-10.2) mg/dL Total Bilirubin 0.4 (0.0-1.0) mg/dL AST 26 (5-31) U/L ALT 21 (0-31) U/L Alkaline Phosphatase 70 (39-117) U/L Total Protein 7.4 (6.5-8.0) g/dL Albumin 4.2 (3.5-5.0) g/dL Urine Color Yellow Urine Appearance Clear Urine pH 6.5 (5.0-9.0) Ur Specific [place] >= 1.030 H (1.005-1.025) Urine Protein Negative (Neg-Trace) mg/dL Urine Glucose (UA) Negative (Negative) mg/dL Urine Ketones Trace (Negative) mg/dL Urine Blood Small (1+) H (Negative) Urine Nitrite Negative (Negative) Ur Leukocyte Esterase Trace H (Negative) Urine RBC 11-20 H (0-2) /HPF Urine WBC 0-5 (0-5) /HPF Ur Squamous Epith Cells 3-5 (0-2) /HPF Urine Bacteria None Seen (None Seen) Hyaline Casts 0-2 (0-2) /LPF Radiology Impression Discussion of test interpretation with radiology: I have reviewed the radiologist's reading. Radiologist Impression: Findings: The lung bases are clear. 3 mm calculus within the upper pole of the left kidney. Additional 4 mm calcification within the left distal ureter. No hydronephrosis. There are 2 circumscribed low-density nodules within the lateral segment of the liver, measuring 4.7 and 3.2 cm in greatest dimension respectively. The spleen, pancreas and adrenal glands are unremarkable. There is no calcified gallstone. No bowel obstruction, pneumoperitoneum, or pneumatosis. The urinary bladder is completely decompressed. Pelvic contents are otherwise unremarkable. The appendix is normal. The bones are intact. IMPRESSION: 1. 4 mm calcification within the left distal ureter. No associated hydronephrosis. 2. Tiny nonobstructive calculus within the upper pole of the left kidney. 3. There are 2 prominent nodules within the lateral segment of the liver. Benign nodules are favored malignancy is not excluded. Recommend further evaluation with multiphase CT or MRI. This document has been electronically signed by: Fatmata Hardy MD on 10/05/2024 21:04:45 Medications Administered Discontinued Medications Generic Name Dose Route Start Last Admin Trade Name Freq PRN Reason Stop Dose Admin Ibuprofen 600 mg 10/05/24 19:08 10/05/24 19:11 Ibuprofen 600 Mg Tablet PO 10/05/24 19:09 600 mg ONCE ONE Administration Ketorolac Tromethamine 30 mg 10/05/24 20:00 10/05/24 20:07 Ketorolac Tromethamine 30 Mg/Ml Vial IM 10/05/24 20:01 30 mg ONCE ONE Administration Discharge Plan Discharge Clinical Impression: Ureterolithiasis Patient Disposition: Home, Self-Care Instructions: Ureteral Stones (ED) Additional Instructions: Your CT scan showed a 4 mm stone in the left distal ureter. You may use ibuprofen/Tylenol for pain. Use oxycodone for more severe breakthrough pain. This may make you drowsy, do not drink alcohol or drive after taking it Follow-up with urology at the number provided Return for new or worsening symptoms, especially develop fevers Prescriptions: New oxycodone 5 mg tablet 5 mg PO Q8H PRN (Reason: severe pain (scale score 7-10)) Qty: 12 0RF Rx Instructions: Partial Fill upon patient request. No Action lidocaine 5 % adhesive patch,medicated See Rx Instructions topical DAILY 30 Days Qty: 30 2RF Rx Instructions: leave on most painful area for up to 12 hrs topically daily; prednisone 20 mg tablet 20 mg PO DAILY 5 Days Qty: 5 0RF tamsulosin 0.4 mg capsule 0.4 mg PO BEDTIME 14 Days Qty: 14 0RF azithromycin 250 mg tablet See Rx Instructions .ROUTE .COMPLEX Qty: 6 0RF Rx Instructions: For 250 mg dose pack: take 500 mg today (day 1), then 250 mg for 4 days (days 2-5) metoclopramide HCl 10 mg tablet 10 mg PO Q6H PRN (Reason: nausea and vomiting) Qty: 10 0RF cyclobenzaprine 5 mg tablet 5 - 10 mg PO TID PRN (Reason: muscle spasm) acetaminophen [Tylenol 8 Hour] 650 mg tablet extended release 650 mg PO Q12H famotidine [Pepcid] 20 mg tablet 20 mg PO DAILY melatonin 10 mg capsule 10 mg PO BEDTIME PRN gabapentin 300 mg capsule 600 mg PO BEDTIME ibuprofen 800 mg tablet 800 mg PO TID gabapentin 100 mg capsule 0 mg PO diclofenac sodium [Arthritis Pain (diclofenac)] 1 % gel 4 g topical QID Qty: 180 1RF Rx Instructions: Apply 1-3 grams (pumps) to the affected area 3-4 times daily (knee and feet). Apply first, then rub in well. Referrals: Mary Szymanski MD [Physician, Urology] Referral Note: 4mm left ureteral stone Interventions: ED Discharge Assessment Last Done: 10/05/24 21:27 Discharge Date/Time: 10/05/24 21:27 Print Language: Monegasque
[2024-10-05 14:43] LABS: MANUAL DIFF FLAG NO
[2024-10-05 14:45] LABS: Basophils Percent Auto 0.3 % (0-2); Eosinophils Absolute Auto 0.2 X10*3/uL (0.0-0.4); Hematocrit 39.5 % (37.0-47.0); Hemoglobin 12.3 g/dl (12.0-16.0); Imm Gran Abs Auto 0.03 X10*3/uL (0.00-0.03); Imm Gran Pct Auto 0.3 % (0.0-0.4); Lymphocytes Absolute Auto 3.3 X10*3/uL (1.2-4.9); Lymphocytes Percent Auto 37.4 % (20-40); Mean Corpuscular HGB Conc 31.1 g/dl (31.0-35.0); Mean Corpuscular Hemoglobin 26.5 pg (27.0-33.0); Mean Corpuscular Volume 85.1 fL (80.0-98.0); Mean Platelet Volume 10.6 fL (9.4-12.3); Monocytes Absolute Auto 0.6 X10*3/uL (0.1-1.2); Monocytes Percent Auto 7.1 % (2-11); Neutrophils Absolute Auto 4.6 x10*3/uL (2.0-8.3); Neutrophils Percent Auto 52.9 % (45-73); Platelet Count 266 X10*3/uL (160-400); Red Blood Count 4.64 X10*6/uL (4.20-5.50); Red Cell Distribution Width 14.7 % (11.0-16.0); White Blood Count 8.8 X10*3/uL (4.8-10.8)
[2024-10-05 15:03] LABS: Alanine Aminotransferase 21 U/L (0-31); Albumin Level 4.2 g/dL (3.5-5.0); Alkaline Phosphatase 70 U/L (39-117); Anion Gap 13 (12-20); Aspartate Amino Transferase 26 U/L (5-31); Bilirubin Total 0.4 mg/dL (0.0-1.0); Blood Urea Nitrogen 15 mg/dL (9-16); Calcium 9.9 mg/dL (8.4-10.2); Carbon Dioxide 27 mmol/L (22-29); Chloride 106 mmol/L (96-108); Creatinine Clr Calc Pharmacy 88.5; Estimated Glomerular Filt Rate 58; Glucose Fasting 85 mg/dL (60-99); Potassium 4.3 mmol/L (3.3-5.1); Sodium 142 mmol/L (135-145); Total Protein 7.4 g/dL (6.5-8.0)
--- NOTE | 2024-10-05 17:29 | PC.NURSE ---
Patient came to triage window to inquire if she could get pain medicine for her kidney stone, offered patient tylenol or motrin for pain. This television script writer explained to patient that dept is busy today, patient will be seen when space is available, apologized for the delay and frustration. Patient declined pain medications offered. Observed walking with steady gait out of dept 45 seconds later.
[2024-10-05] MEDS: Ibuprofen 600 MG TABLET PO (19:11)
[2024-10-05 19:13] VITALS: BP 148/76; PULSE 75; RESP 16; TEMP 36.4; O2SAT 97
[2024-10-05 19:24] LABS: Appearance Urine Clear; Color Urine Yellow; Glucose Urine UA Negative (Negative); Leukocyte Esterase Urine Trace (Negative); Nitrite Urine Negative (Negative); PH 6.5 (5.0-9.0); Specific Gravity - Urine >= 1.030 (1.005-1.025); UMIC TRIGGER UACC YES; Urine Blood Small (1+) (Negative); Urine Ketones Trace mg/dL (Negative); Urine Protein Negative (Neg-Trace)
[2024-10-05 19:38] LABS: Bacteria Urine None Seen (None Seen); Hyaline Casts Urine 0-2 /LPF (0-2); WBC Urine 0-5 /HPF (0-5)
[2024-10-05 19:50] VITALS: BP 153/74; PULSE 67; RESP 18; O2SAT 97
[2024-10-05] MEDS: Ketorolac Tromethamine 30 MG/ML VIAL IM (20:07)
[2024-10-05 21:27] VITALS: BP 153/74; PULSE 67; RESP 18; TEMP 36.4; O2SAT 97
== END 2024-10-05 21:27 | disposition home or self-care (01) ==
PROVIDERS: Physician Assistant Medical; Emergency Provider Emergency Medicine; PCP Internal Medicine
DX: N20.2 Calculus of kidney with calculus of ureter (principal); R10.32 Left lower quadrant pain; R10.2 Pelvic and perineal pain; G89.4 Chronic pain syndrome; Z87.442 Personal history of urinary calculi; Z79.52 Long term (current) use of systemic steroids
CPT/HCPCS: 36415; 74022; 74176; 76775; 80053; 81001; 85025; 96372; 99284; J1885

== ENCOUNTER → 2024-10-05 14:28 | Outpatient (BNV) | payer OTHER, SELFPAY | PROVIDERS: Visit Provider Radiology Diagnostic Radiology | DX: N20.2 Calculus of kidney with calculus of ureter (principal); R93.2 Abnormal findings on diagnostic imaging of liver and biliary tract; R10.9 Unspecified abdominal pain | CPT/HCPCS: 74022; 74176; 76775 ==